=== PATIENT | female | born 1955 | race Caucasian/White ===

== ENCOUNTER 2022-08-09 19:15 | Emergency (ER) | payer MEDICARE, OTHER ==
[~2022-08-09] VITALS: Ht 142.2 cm; Wt 77.1 kg
[~2022-08-09 19:15] MED LIST: ACET325T53 PO; IBUP-1953 PO
[2022-08-09] MEDS ORDERED: TDAP [DIPH/PERTUSSIS/TET] 0.5 ML VIAL IM ONE ×2 (20:24→20:30)
--- NOTE | 2022-08-09 20:42 | NUR ---
DUODERM APPLIED TO LACERATED WOUND BY DR. BRYSON
--- NOTE | 2022-08-09 20:42 | NUR ---
Patient discharged to home in stable condition. Written and verbal after care instructions given. Patient verbalizes understanding of instruction.
[2022-08-09 20:46] VITALS: BP 135/75
== END 2022-08-09 20:46 | disposition home or self-care (01) ==
LOC: ER 19:36
DX: S61.210A Laceration without foreign body of right index finger without damage to nail, initial encounter (principal); Z79.1 Long term (current) use of non-steroidal anti-inflammatories (NSAID); W26.0XXA Contact with knife, initial encounter; Y93.G3 Activity, cooking and baking; Y92.89 Other specified places as the place of occurrence of the external cause; Y99.8 Other external cause status
CPT/HCPCS: 99283; 12001; 90471; 90715; A6403 ×2